=== PATIENT | male | born 1980 | race Caucasian/White ===

== ENCOUNTER 2021-10-27 23:19 | Emergency (ER) | payer OTHER ==
[~2021-10-27] VITALS: Wt 113.6 kg
[2021-10-27] MEDS ORDERED: GLUCOPHAGE PO (23:29)
[2021-10-28 00:11] LABS: URINE APPEARANCE CLOUDY; URINE BILIRUBIN NEGATIVE (NEGATIVE); URINE BLOOD 250 ery/uL (NEGATIVE); URINE COLOR BLOODY; URINE KETONE NEGATIVE (NEGATIVE); URINE LEUKOCYTE ESTERASE 2+ (NEGATIVE); URINE NITRATE NEGATIVE (NEGATIVE); URINE PROTEIN(semi-quant) 2+ (NEGATIVE); URINE UROBILINOGEN NORMAL (NORMAL); URINE WBC >50 /hpf (0-3)
[2021-10-28] MEDS ORDERED: CIPRO500 M1 PO (00:36)
[2021-10-28 00:41] VITALS: BP 169/99
== END 2021-10-28 00:42 | disposition home or self-care (01) ==
LOC: ED 23:19
PROVIDERS: Nurse Practitioner Family
DX: N30.01 Acute cystitis with hematuria (principal); Z28.310 Unvaccinated for COVID-19

== ENCOUNTER → 2023-04-25 | Outpatient (CLI) | payer OTHER ==
[~2023-04-25] MED LIST: CIPRO500 M1 PO; GLUCOPHAGE PO
[2023-04-25 14:44] LABS: CALCIUM 9.7 mg/dL (8.3-10.5)
== END ==
LOC: LAB 14:12
PROVIDERS: Family Medicine
DX: I10 Essential (primary) hypertension (principal); R73.03 Prediabetes

== ENCOUNTER → 2024-06-25 | Outpatient (CLI) | payer OTHER ==
[2024-06-25 12:34] LABS: CALCIUM 9.6 mg/dL (8.3-10.5)
== END ==
LOC: LAB 11:58
PROVIDERS: Family Medicine
DX: E11.29 Type 2 diabetes mellitus with other diabetic kidney complication (principal)